=== PATIENT | male | born 1975 | race Caucasian/White ===

== ENCOUNTER 2016-09-21 15:35 | Emergency (ER) | payer BC ==
[2016-09-21 17:11] LABS: UDS - AMPHET NEGATIVE QUAL (NEGATIVE); UDS - BARB NEGATIVE QUAL (NEGATIVE); UDS - BENZO NEGATIVE QUAL (NEGATIVE); UDS - COCAINE NEGATIVE QUAL (NEGATIVE); UDS - METH NEGATIVE QUAL (NEGATIVE); UDS - OPIATE NEGATIVE QUAL (NEGATIVE); UDS - PCP NEGATIVE QUAL (NEGATIVE); UDS - THC NEGATIVE QUAL (NEGATIVE)
[2016-09-21 17:49] LABS: ALBUMIN 4.1 g/dL (3.4-5.0); ALKALINE PHOSPHATASE 100 U/L (46-116); ALT (SGPT) 223 U/L (10-68); BILIRUBIN - TOTAL 0.94 mg/dL (0.2-1.3); CALC OSMOLALITY 281 mosm/kg (275-300); CARBON DIOXIDE 26.8 mmol/L (21.0-32.0); CHLORIDE - SERUM 100 mmol/L (98-107); GLUCOSE 102 mg/dL (74-106); POTASSIUM - SERUM 3.3 mmol/L (3.5-5.1); PROTEIN - SERUM 7.3 g/dL (6.4-8.2); SODIUM 141 mmol/L (136-145); UREA NITROGEN 16 mg/dL (7-18); eGFR NON AFRICAN AMERICAN 87 mL/min (90-120)
== END 2016-09-21 20:27 | disposition home or self-care (01) ==
LOC: D.ER 15:35
PROVIDERS: Emergency Medicine
DX: F32.9 Major depressive disorder, single episode, unspecified (principal); F10.10 Alcohol abuse, uncomplicated; G40.909 Epilepsy, unspecified, not intractable, without status epilepticus

== ENCOUNTER 2017-04-13 13:19 | Emergency (ER) | payer BC ==
[2017-04-13 14:53] LABS: BASOPHILS 1.1 % (0-2); EOSINOPHILS 2.6 % (0-7); HEMATOCRIT 34.3 % (42.0-54.0); IMMATURE GRANULOCYTES 0.3 % (0-5); LYMPHOCYTES 20.9 % (15-50); MCH 26.6 pg (26.0-34.0); MCHC 32.1 g/dL (31.0-37.0); MCV 82.9 fL (80.0-100.0); MEAN PLATELET VOLUME 9.4 fL (7.4-10.4); MONOCYTES 9.1 % (2-11); PLATELET COUNT 298 10x3/uL (130-400); RBC 4.14 10x6/uL (4.20-6.10); RDW 18.2 % (11.5-14.5)
[2017-04-13 15:33] LABS: ALBUMIN 3.8 g/dL (3.4-5.0); ALKALINE PHOSPHATASE 142 U/L (46-116); ALT (SGPT) 145 U/L (10-68); BILIRUBIN - TOTAL 0.52 mg/dL (0.2-1.3); CALC OSMOLALITY 276 mosm/kg (275-300); CALCIUM 8.8 mg/dL (8.5-10.1); CARBON DIOXIDE 23.7 mmol/L (21.0-32.0); CHLORIDE - SERUM 100 mmol/L (98-107); CREATININE - SERUM 0.8 mg/dL (0.6-1.3); GLUCOSE 86 mg/dL (74-106); MAGNESIUM - SERUM 1.4 mg/dL (1.8-2.4); POTASSIUM - SERUM 3.8 mmol/L (3.5-5.1); PROTEIN - SERUM 7.9 g/dL (6.4-8.2); SODIUM 140 mmol/L (136-145); UREA NITROGEN 10 mg/dL (7-18); eGFR NON AFRICAN AMERICAN > 90 mL/min (90-120)
[2017-04-13 15:44] LABS: APPEARANCE CLEAR (CLEAR); BILIRUBIN NEGATIVE (NEGATIVE); COLOR DK YELLOW (YELLOW); GLUCOSE NEGATIVE (NEGATIVE); KETONE NEGATIVE (NEGATIVE); LEUKOCYTE ESTERASE TRACE (NEGATIVE); NITRITE NEGATIVE (NEGATIVE); PROTEIN TRACE mg/dL (NEGATIVE); SPECIFIC GRAVITY 1.015 (1.005-1.020); UROBILINOGEN NORMAL (NORMAL)
[2017-04-13 15:47] LABS: BACTERIA FEW /hpf (NONE SEEN)
[2017-04-13 15:48] LABS: UDS - AMPHET NEGATIVE QUAL (NEGATIVE); UDS - BARB NEGATIVE QUAL (NEGATIVE); UDS - BENZO NEGATIVE QUAL (NEGATIVE); UDS - COCAINE NEGATIVE QUAL (NEGATIVE); UDS - METH NEGATIVE QUAL (NEGATIVE); UDS - OPIATE NEGATIVE QUAL (NEGATIVE); UDS - PCP NEGATIVE QUAL (NEGATIVE); UDS - THC NEGATIVE QUAL (NEGATIVE)
== END 2017-04-13 16:31 | disposition home or self-care (01) ==
LOC: D.ER 13:19
PROVIDERS: Family Medicine
DX: F10.10 Alcohol abuse, uncomplicated (principal); R56.9 Unspecified convulsions; E83.42 Hypomagnesemia; F17.200 Nicotine dependence, unspecified, uncomplicated

== ENCOUNTER 2018-11-14 16:41 | Inpatient (IN) | payer SELFPAY ==
[~2018-11-14] VITALS: Ht 180.3 cm; Wt 86.4 kg
[2018-11-14] MEDS ORDERED: TOPROL XL100 MG PO (16:46)
[2018-11-14] MEDS ORDERED: CARDIZEM CD180 MG PO (16:47)
[2018-11-14] MEDS ORDERED: OMEPRAZOLE20 M1 (16:47)
[2018-11-14] MEDS ORDERED: GAS-X125 M1 PO (16:48)
[2018-11-14] MEDS ORDERED: POTASSIUM99 M1 (16:48)
[2018-11-14 17:15] LABS: BASOPHILS 0.4 % (0-2); EOSINOPHILS 2.1 % (0-7); HEMATOCRIT 36.9 % (42.0-54.0); HEMOGLOBIN 12.8 g/dL (13.5-17.5); IMMATURE GRANULOCYTES 0.3 % (0-5); LYMPHOCYTES 12.6 % (15-50); MCH 35.4 pg (26.0-34.0); MCHC 34.7 g/dL (31.0-37.0); MCV 101.9 fL (80.0-100.0); MEAN PLATELET VOLUME 11.2 fL (7.4-10.4); MONOCYTES 5.4 % (2-11); NEUTROPHILS 79.2 % (40-80); RBC 3.62 10x6/uL (4.20-6.10); RDW 16.4 % (11.5-14.5); WBC 19.6 10x3/uL (4.8-10.8)
[2018-11-14 17:32] LABS: ALBUMIN 2.1 g/dL (3.4-5.0); ALKALINE PHOSPHATASE 448 U/L (46-116); ALT (SGPT) 27 U/L (10-68); AMYLASE - SERUM 70 U/L (25-115); BILIRUBIN - TOTAL 1.95 mg/dL (0.2-1.3); CALC OSMOLALITY 277 mosm/kg (275-300); CALCIUM 7.9 mg/dL (8.5-10.1); CARBON DIOXIDE 21.5 mmol/L (21.0-32.0); CHLORIDE - SERUM 103 mmol/L (98-107); CREATININE - SERUM 0.7 mg/dL (0.6-1.3); GLUCOSE 138 mg/dL (74-106); LIPASE 749 U/L (73-393); POTASSIUM - SERUM 3.8 mmol/L (3.5-5.1); PROTEIN - SERUM 7.4 g/dL (6.4-8.2); SODIUM 139 mmol/L (136-145); UREA NITROGEN 6 mg/dL (7-18); eGFR NON AFRICAN AMERICAN > 90 mL/min (90-120)
[2018-11-14 17:33] LABS: PLATELET COUNT 416 10x3/uL (130-400)
[2018-11-14 19:20] LABS: APPEARANCE CLEAR (CLEAR); BILIRUBIN NEGATIVE (NEGATIVE); COLOR YELLOW (YELLOW); GLUCOSE NEGATIVE (NEGATIVE); KETONE NEGATIVE (NEGATIVE); NITRITE NEGATIVE (NEGATIVE); PROTEIN TRACE mg/dL (NEGATIVE); UROBILINOGEN NORMAL (NORMAL)
[2018-11-14 19:30] VITALS: BP 107/64
[2018-11-14 20:24] VITALS: BP 115/68
--- NOTE | 2018-11-14 20:57 | NUR ---
TO BE ADMITTED, AT BEDSIDE, STATES HE FEELS MUCH BETTER, MEDICATION INFUSING PER ORDER. CALL LIGHT WITHIN REACH.
--- NOTE | 2018-11-14 22:17 | NUR ---
ATTEMPTED TO CALL REPORT, THEY WERE LOOKING FOR THE NURSE WHO WAS GOING TO TAKE THIS PATIENT, THEY SAID SOMEONE WOULD CALL ME BACK.
[2018-11-14 23:16] VITALS: BP 132/78; BMI 281.6
--- NOTE | 2018-11-14 23:22 | NUR ---
RECIEVED REPORT FROM DANIEL PATEL IN ER AT 222. ARRIVED TO [facility] IN W/C ASSISTED BY STAFF AT 2250. ALERT AND ORIENTEDD X4. UP AD KAM. TRANSFERED SELF TO BED. 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 IV TO LEFT HAND WITH BANNANA BAG AND NS INFUSING. DENIES ANY NEEDS AT THIS TIME AND DENIES ANY PAIN.
[2018-11-14 23:55] VITALS: BP 115/72
[2018-11-15 03:50] VITALS: BP 125/73
[2018-11-15 06:01] LABS: BASOPHILS 0.4 % (0-2); EOSINOPHILS 2.6 % (0-7); HEMATOCRIT 35.9 % (42.0-54.0); HEMOGLOBIN 11.8 g/dL (13.5-17.5); IMMATURE GRANULOCYTES 0.3 % (0-5); LYMPHOCYTES 12.4 % (15-50); MCH 33.9 pg (26.0-34.0); MCHC 32.9 g/dL (31.0-37.0); MCV 103.2 fL (80.0-100.0); MEAN PLATELET VOLUME 10.5 fL (7.4-10.4); MONOCYTES 5.8 % (2-11); NEUTROPHILS 78.5 % (40-80); RBC 3.48 10x6/uL (4.20-6.10); RDW 16.7 % (11.5-14.5); WBC 15.9 10x3/uL (4.8-10.8)
[2018-11-15 06:30] LABS: ALBUMIN 1.8 g/dL (3.4-5.0); ALKALINE PHOSPHATASE 368 U/L (46-116); ALT (SGPT) 21 U/L (10-68); CALC OSMOLALITY 272 mosm/kg (275-300); CALCIUM 7.2 mg/dL (8.5-10.1); CARBON DIOXIDE 23.6 mmol/L (21.0-32.0); CHLORIDE - SERUM 105 mmol/L (98-107); CREATININE - SERUM 0.6 mg/dL (0.6-1.3); GLUCOSE 91 mg/dL (74-106); POTASSIUM - SERUM 4.1 mmol/L (3.5-5.1); PROTEIN - SERUM 6.5 g/dL (6.4-8.2); SODIUM 138 mmol/L (136-145); eGFR NON AFRICAN AMERICAN > 90 mL/min (90-120)
[2018-11-15 06:36] LABS: UREA NITROGEN 4 mg/dL (7-18)
[2018-11-15 06:49] LABS: PLATELET COUNT 313 10x3/uL (130-400)
[2018-11-15 10:04] VITALS: BP 141/69
[2018-11-15 11:00] VITALS: BMI 36.0
--- NOTE | 2018-11-15 12:16 | NUR ---
STOOL SPECIMEN COLLECTED AND TAKEN TO LAB. WILL MONITOR.
[2018-11-15 15:37] VITALS: Ht 180.3 cm; Wt 86.4 kg
[2018-11-15 16:04] LABS: % SATURATION 42 % (15-55); IRON 92 ug/dl (35-150); TOTAL IRON BIND CAPACITY 216 ug/dl (260-445); UNSAT IRON BIND CAPACITY 124 ug/dl (150-375)
[2018-11-15 16:10] LABS: APTT 36.7 SECONDS (22.8-39.4); INR 1.32 (0.85-1.17); PROTIME 15.8 SECONDS (11.6-15.0)
[2018-11-15 16:25] LABS: MAGNESIUM - SERUM 2.1 mg/dL (1.8-2.4)
--- NOTE | 2018-11-15 16:37 | NUR ---
SHAYAN SALAZAR NOTIFIED OF AMMONIA LEVEL.
[2018-11-15 16:47] VITALS: BP 108/76
--- NOTE | 2018-11-15 17:08 | NUR ---
URINE SPECIMEN COLLECTED AND TAKEN TO LAB. WILL MONITOR.
[2018-11-15 17:39] LABS: UDS - AMPHET NEGATIVE QUAL (NEGATIVE); UDS - BARB NEGATIVE QUAL (NEGATIVE); UDS - BENZO NEGATIVE QUAL (NEGATIVE); UDS - COCAINE NEGATIVE QUAL (NEGATIVE); UDS - OPIATE POSITIVE QUAL (NEGATIVE); UDS - PCP NEGATIVE QUAL (NEGATIVE); UDS - THC NEGATIVE QUAL (NEGATIVE)
[2018-11-15 20:00] VITALS: BP 126/76
[2018-11-16 00:30] VITALS: BP 130/82
[2018-11-16 04:00] VITALS: BP 124/75
--- NOTE | 2018-11-16 04:12 | NUR ---
I have reviewed this patient and I concur with the Shift Assessment completed by the Licensed Practical Nurse today this shift.
--- NOTE | 2018-11-16 04:24 | NUR ---
RESTING WITH EYES CLOSED, RESPERATIONS EVEN, NO S/S DISTRESS NOTED.
[2018-11-16 06:10] LABS: BASOPHILS 0.5 % (0-2); EOSINOPHILS 2.2 % (0-7); HEMATOCRIT 34.2 % (42.0-54.0); HEMOGLOBIN 11.6 g/dL (13.5-17.5); IMMATURE GRANULOCYTES 0.2 % (0-5); LYMPHOCYTES 12.8 % (15-50); MCH 34.6 pg (26.0-34.0); MCHC 33.9 g/dL (31.0-37.0); MCV 102.1 fL (80.0-100.0); MEAN PLATELET VOLUME 10.6 fL (7.4-10.4); NEUTROPHILS 78.3 % (40-80); PLATELET COUNT 279 10x3/uL (130-400); RBC 3.35 10x6/uL (4.20-6.10); RDW 16.1 % (11.5-14.5); WBC 14.5 10x3/uL (4.8-10.8)
[2018-11-16 06:37] LABS: INR 1.51 (0.85-1.17); PROTIME 17.6 SECONDS (11.6-15.0)
[2018-11-16 06:47] LABS: ALBUMIN 1.8 g/dL (3.4-5.0); ALKALINE PHOSPHATASE 336 U/L (46-116); ALT (SGPT) 19 U/L (10-68); BILIRUBIN - TOTAL 3.59 mg/dL (0.2-1.3); CALC OSMOLALITY 269 mosm/kg (275-300); CALCIUM 7.8 mg/dL (8.5-10.1); CARBON DIOXIDE 21.6 mmol/L (21.0-32.0); CHLORIDE - SERUM 105 mmol/L (98-107); CHOLESTEROL, TOTAL 165 mg/dL (0-200); CREATININE - SERUM 0.5 mg/dL (0.6-1.3); GLUCOSE 84 mg/dL (74-106); HDL CHOLESTEROL 11 mg/dL (32-96); LDL CHOLESTEROL 132 mg/dL (0-100); LIPASE 262 U/L (73-393); POTASSIUM - SERUM 3.6 mmol/L (3.5-5.1); PROTEIN - SERUM 6.4 g/dL (6.4-8.2); SODIUM 137 mmol/L (136-145); TRIGLYCERIDE 110 mg/dL (30-200); UREA NITROGEN 5 mg/dL (7-18); eGFR NON AFRICAN AMERICAN > 90 mL/min (90-120)
[2018-11-16 06:48] LABS: AMYLASE - SERUM 38 U/L (25-115)
[2018-11-16 07:29] LABS: HEPATITIS C ANTIBODY <0.1 S/CO RAT (0.0-0.9)
--- NOTE | 2018-11-16 07:50 | NUR ---
LEAVING FOR MRI BY W/C. WILL CONT. PLAN OF CARE.
--- NOTE | 2018-11-16 08:00 | NUR ---
PARVIZ PETERS CALLED TO SHAYAN SALAZAR. NEW ORDERS GIVEN.
--- NOTE | 2018-11-16 08:58 | NUR ---
BACK FROM MRI. DIET And meds resumed.
--- NOTE | 2018-11-16 10:18 | NUR ---
STOOL SPECIMEN COLLECTED AND TAKEN TO LAB. WILL MONITOR.
--- NOTE | 2018-11-16 13:28 | NUR ---
1ST NS BOLAS 1000 CC STOPPED AT 1846, 1000 CC INFUSED.
--- NOTE | 2018-11-16 15:14 | NUR ---
MOTHER REQUESTS A SMALLER SHOWER CHAIR. WAS OFFERED TO FIND ANOTHERONE BUT IT MIGHT TAKE SOME TIME. SHE SAID NEVER MIND THAT HE WANTS A SHOWER NOW AND WILL NOT WAIT.
[2018-11-16 16:10] LABS: FOLATE (FOLIC ACID) - SERUM QNS ng/mL (())
--- NOTE | 2018-11-16 17:10 | NUR ---
TRANSFER FROM SHIP STEWARD BY STRETCHER. VS WNL. RIGHT WRIST STABLE WITH TR BAND INTACT. WILL MONITOR.
[2018-11-16 17:54] VITALS: BP 117/76
[2018-11-16 18:31] VITALS: BP 124/76
--- NOTE | 2018-11-16 19:09 | NUR ---
RESUMING PATIENT CARE. PT APPEARS TO BE SLEEPING. RESPIRATIONS ARE EVEN AND UNLABORED. NO S/S OF DISTRESS. CALL LIGHT WITHIN REACH. WILL CPOC.
[2018-11-16 22:36] VITALS: BP 121/77
[2018-11-17 06:02] LABS: BASOPHILS 0.5 % (0-2); EOSINOPHILS 2.3 % (0-7); HEMATOCRIT 35.1 % (42.0-54.0); HEMOGLOBIN 11.7 g/dL (13.5-17.5); IMMATURE GRANULOCYTES 0.3 % (0-5); LYMPHOCYTES 12.4 % (15-50); MCH 33.7 pg (26.0-34.0); MCHC 33.3 g/dL (31.0-37.0); MCV 101.2 fL (80.0-100.0); MEAN PLATELET VOLUME 10.7 fL (7.4-10.4); MONOCYTES 5.8 % (2-11); NEUTROPHILS 78.7 % (40-80); PLATELET COUNT 283 10x3/uL (130-400); RBC 3.47 10x6/uL (4.20-6.10); RDW 16.2 % (11.5-14.5); WBC 15.3 10x3/uL (4.8-10.8)
[2018-11-17 06:06] VITALS: BP 117/80
[2018-11-17 06:23] LABS: ALBUMIN 1.9 g/dL (3.4-5.0); ALKALINE PHOSPHATASE 324 U/L (46-116); ALT (SGPT) 23 U/L (10-68); BILIRUBIN - TOTAL 4.45 mg/dL (0.2-1.3); CALC OSMOLALITY 266 mosm/kg (275-300); CALCIUM 7.9 mg/dL (8.5-10.1); CARBON DIOXIDE 19.1 mmol/L (21.0-32.0); CHLORIDE - SERUM 102 mmol/L (98-107); CREATININE - SERUM 0.6 mg/dL (0.6-1.3); GLUCOSE 79 mg/dL (74-106); POTASSIUM - SERUM 3.4 mmol/L (3.5-5.1); PROTEIN - SERUM 6.6 g/dL (6.4-8.2); SODIUM 135 mmol/L (136-145); eGFR NON AFRICAN AMERICAN > 90 mL/min (90-120)
[2018-11-17 06:25] LABS: UREA NITROGEN 7 mg/dL (7-18)
[2018-11-17 08:17] LABS: FOLATE (FOLIC ACID) - SERUM 10.2 ng/mL (>3.0)
[2018-11-17 09:06] VITALS: BP 127/84
--- NOTE | 2018-11-17 09:56 | NUR ---
RECEIVED PT IN BED AAOX4 RESP UNLABORED DENIES ANY NEEDS OR DISCOMFORT WANTING TO DC HOME
[2018-11-17] MEDS ORDERED: LEVAQUIN750 MG PO (10:02)
[2018-11-17] MEDS ORDERED: CHRONULAC30 ML PO (10:03)
[2018-11-17] MEDS ORDERED: FLAGYL500 MG PO (10:03)
--- NOTE | 2018-11-17 12:38 | NUR ---
REVIEWED DISCHARGE INSTRUCTION WITH PT STATES UNDERSTANDING COPY GIVEN DCD SALINE LOCK TO LT HAND WITH IV CATHETER INTACT SITE FREE OF REDNESS OR EDEMA PT DISCHARGED HOME IN STABLE CONDITION WITH ALL PERSONAL BELONGINGS LEFT VIA W/C
--- NOTE | 2018-11-17 16:54 | MORECARE ---
CASE MANAGEMENT DISCHARGE SUMMARY PATIENT: PAULINA WAGNER UNIT: [id number] ADM DATE: 11/14/18 AGE: 42 : 71 SEX: M ROOM/BED: D.2114 AUTHOR: LIZBET,DOC PHYSICIAN: REFERRING PHYSICIAN: CHEVY GUERRERO MD DATE OF SERVICE: 11/17/18 Discharge Plan Patient Name: PAULINA WAGNER Facility: [facility]:[place] : 1975 Planned Disposition: Home Anticipated Discharge Date: 11/17/18 Discharge Date: 11/17/2018 Expected LOS: 3 Initial Reviewer: [email or web address] Initial Review Date: 11/17/2018 Generated: 11/17/18 5:53 pm Comments DCP- Discharge Planning Updated by [email or web address]: Kev Agrawal on 11/17/18 3:[address] Patient Name: PAULINA WAGNER Admission Status: ER Accout number: [id number] Admission Date: 11-14-2018 : 1975 Admission Diagnosis:UNSPECIFIED ABDOMINAL PAIN Attending: CHEVY GUERRERO Current LOS: 3 Anticipated DC Date: 11-17-2018 Planned Disposition: Home Primary Insurance: UNINSURED DISCOUNT PLAN Discharge Planning Comments: CM MET WITH PT IN ROOM TO DISCUSS DISCHARGE PLANNING AND NEEDS. PT REPORTS LIVING AT HOME INDEPENDENTLY WITH SPOUSE. PT HAS NO MEDICAL EQUIPMENT AND NO OUTSIDE SERVICES ASSISTING IN THE HOME. CM DISCUSSED AVAILABILITY OF HOME HEALTH, REHAB SERVICES AND MEDICAL EQUIPMENT. PT REPORTS FAMILY WILL PICK HIM UP FOR DISCHARGE HOME AND HE IS READY NOW. PT WILL FOLLOW UP WITH [facility] DEPARTMENT OF HUMAN SERVICES OFFICE IN REGARDS TO HIS MEDICAID APPLICATION THAT THE HOSPITAL SUBMITTED FOR THIS VISIT. PT DENIES DISCHARGE NEEDS. USABILITY ARCHITECT NURSE NOTIFIED. Net Mvc Developer: Kev Agrawal DCPIA - Discharge Planning Initial Assessment Updated by [email or web address]: Kev Agrawal on 11/17/18 4:50 pm * Is the patient Alert and Oriented? Yes * How many steps to enter\exit or inside your home? * PCP DR. MILLS IN [place] * Pharmacy [facility] [address] * Preadmission Environment Home with Family * ADLs Independent * Equipment None * Other Equipment LEG PROSETHESIS - [facility] NO MEDICAL EQUIPMENT PROVIDER PREFERENCE * List name and contact numbers for known caregivers / representatives who currently or will assist patient after discharge: ALIREZA BAKER, SPOUSE, * Verbal permission to speak to the caregivers and representatives has been obtained from the patient. N/A * Community resources currently utilized None * Please name any agencies selected above. NONE * Additional services required to return to the preadmission environment? No * Can the patient safely return to the preadmission environment? Yes * Has this patient been hospitalized within the prior 30 days at any hospital? No Patient Name: PAULINA WAGNER Page [phone] at 1654 All edits/amendments must be made on the electronic document DICTATION DATE: 11/17/181652 LAB MANAGER: REMA 11/17/181652 RPT#: [id number] DC DATE:11/17/18 STATUS: DIS IN [facility] [address] [place] [address] END OF REPORT
== END 2018-11-17 11:38 | disposition home or self-care (01) | DRG 392 ==
LOC: D.ER 16:41 → D.M2 21:01 → D.EDHOLD 21:01 → D.M2 21:47
PROVIDERS: Family Medicine; Internal Medicine Gastroenterology; ADMIT Internal Medicine Nephrology; ATTEND Internal Medicine Nephrology
DX: A09 Infectious gastroenteritis and colitis, unspecified (principal); F17.213 Nicotine dependence, cigarettes, with withdrawal; K92.1 Melena; K70.11 Alcoholic hepatitis with ascites; D50.9 Iron deficiency anemia, unspecified; F10.10 Alcohol abuse, uncomplicated; K21.9 Gastro-esophageal reflux disease without esophagitis; F32.9 Major depressive disorder, single episode, unspecified

== ENCOUNTER → 2018-12-08 06:33 | Outpatient (CLI) | payer MEDICAID ==
[2018-11-15 15:37] VITALS: BMI 36.0
[~2018-12-08 06:33] MED LIST: CARDIZEM CD180 MG PO; CHRONULAC30 ML PO; FLAGYL500 MG PO; GAS-X125 M1 PO; LEVAQUIN750 MG PO; OMEPRAZOLE20 M1; POTASSIUM99 M1; TOPROL XL100 MG PO
[2018-12-08 07:15] LABS: BASOPHILS 1.4 % (0-2); EOSINOPHILS 3.9 % (0-7); HEMATOCRIT 37.7 % (42.0-54.0); HEMOGLOBIN 12.8 g/dL (13.5-17.5); IMMATURE GRANULOCYTES 0.3 % (0-5); LYMPHOCYTES 21.6 % (15-50); MCH 33.4 pg (26.0-34.0); MCV 98.4 fL (80.0-100.0); MEAN PLATELET VOLUME 10.8 fL (7.4-10.4); MONOCYTES 7.4 % (2-11); NEUTROPHILS 65.4 % (40-80); PLATELET COUNT 302 10x3/uL (130-400); RBC 3.83 10x6/uL (4.20-6.10); RDW 15.5 % (11.5-14.5); WBC 11.5 10x3/uL (4.8-10.8)
[2018-12-08 07:31] LABS: ALBUMIN 2.6 g/dL (3.4-5.0); BILIRUBIN - DIRECT 1.1 mg/dL (0.00-0.30); BILIRUBIN - INDIRECT 0.64 mg/dL (0.00-1.00); BILIRUBIN - TOTAL 1.74 mg/dL (0.2-1.3); PROTEIN - SERUM 7.6 g/dL (6.4-8.2)
== END | disposition home or self-care (01) ==
LOC: D.US 06:33
PROVIDERS: ATTEND Internal Medicine Gastroenterology
DX: K76.0 Fatty (change of) liver, not elsewhere classified (principal); K92.1 Melena; K52.9 Noninfective gastroenteritis and colitis, unspecified

== ENCOUNTER 2020-01-08 19:15 | Inpatient (IN) | payer MEDICAID ==
[~2020-01-08] VITALS: Ht 180.3 cm; Wt 90.7 kg
[2020-01-08 20:37] LABS: HEMATOCRIT 27.9 % (42.0-54.0); HEMOGLOBIN 9.6 g/dL (13.5-17.5); MCH 37.5 pg (26.0-34.0); MCHC 34.4 g/dL (31.0-37.0); MEAN PLATELET VOLUME 10.6 fL (7.4-10.4); PLATELET COUNT 144 10x3/uL (130-400); RBC 2.56 10x6/uL (4.20-6.10); RDW 21.2 % (11.5-14.5); WBC 22.8 10x3/uL (4.8-10.8)
[2020-01-08 20:47] LABS: ALBUMIN 1.9 g/dL (3.4-5.0); ALKALINE PHOSPHATASE 321 U/L (30-120); ALT (SGPT) 45 U/L (10-68); AMYLASE - SERUM 62 U/L (25-115); BILIRUBIN - TOTAL 14.94 mg/dL (0.2-1.3); CALCIUM 7.7 mg/dL (8.5-10.1); CARBON DIOXIDE 17.7 mmol/L (21.0-32.0); CHLORIDE - SERUM 103 mmol/L (98-107); CREATININE - SERUM 1.3 mg/dL (0.6-1.3); LIPASE 263 U/L (73-393); PROTEIN - SERUM 5.4 g/dL (6.4-8.2); SODIUM 135 mmol/L (136-145); UREA NITROGEN 9 mg/dL (7-18); eGFR NON AFRICAN AMERICAN 63 mL/min (90-120)
[2020-01-08 20:50] LABS: CALC OSMOLALITY 269 mosm/kg (275-300); GLUCOSE 124 mg/dL (74-106); TROPONIN-I < 0.017 ng/mL (0.000-0.060)
[2020-01-08 20:57] LABS: POTASSIUM - SERUM 2.2 mmol/L (3.5-5.1)
[2020-01-08 21:27] LABS: EOSINOPHILS 2 % (0-7); LYMPHOCYTES 24 % (15-50); NEUTROPHILS 74 % (40-80); PLATELET ESTIMATE NORMAL
[2020-01-08 21:58] LABS: APTT 53.3 SECONDS (22.8-39.4)
[2020-01-08 22:06] LABS: INR 4.57 (0.85-1.17); PROTIME 42.3 SECONDS (11.6-15.0)
[2020-01-08 22:06] LABS: SPECIFIC GRAVITY 1.015 (1.005-1.020)
[2020-01-08 22:07] LABS: BILIRUBIN 2+ (NEGATIVE); GLUCOSE NEGATIVE (NEGATIVE); KETONE NEGATIVE (NEGATIVE); NITRITE NEGATIVE (NEGATIVE); UROBILINOGEN NORMAL (NORMAL)
[2020-01-08 22:08] LABS: BACTERIA FEW /hpf (NEGATIVE); RED CELLS - URINE 0-5 /hpf (0-5); WHITE CELLS - URINE 0-5 /hpf (NEGATIVE)
[2020-01-08] MEDS ORDERED: OMEPRAZOLE20 M1 PO (23:37)
[2020-01-08] MEDS ORDERED: K-DUR20 MEQ PO (23:37)
[2020-01-08] MEDS ORDERED: ALDACTONE50 MG PO (23:38)
[2020-01-08] MEDS ORDERED: PHENERGAN25 M1 PO (23:38)
[2020-01-08] MEDS ORDERED: XIFAXAN550 MG PO (23:39)
[2020-01-08] MEDS ORDERED: FUROSEMIDE40 MG PO (23:39)
[2020-01-09] VITALS (12 sets, daily range): BP systolic 100–121; BP diastolic 59–95; Ht 180.3 cm; Wt 90.7 kg
--- NOTE | 2020-01-09 01:17 | NUR ---
PT ARRIVED ON UNIT VIA WHEELCHAIR, ESCORTED BY ER NURSE. IV TO LEFT AC PATENT...RE-STARTED NS @ 125 ML/HR, AND STARTED NEW POTASSIUM RIDER 10 MEQ AT 60 ML/HR.
--- NOTE | 2020-01-09 01:53 | NUR ---
PT REQUESTED BENADRYL FOR SLEEP. RECEIVED ORDER FROM BENEFIT DIRECTOR FOR BENADRYL 25 MG IVP X1...MAY REPEAT IF NEEDED.
--- NOTE | 2020-01-09 01:54 | NUR ---
OK FROM UPHOLSTERY BUNDLER FOR PT TO TAKE HIS OWN NIGHT MEDS...WILL RECONCILE HOME MEDS AND MD CAN REVIEW IN AM.
--- NOTE | 2020-01-09 07:28 | NUR ---
PT LYING IN BED C/O BEING COLD, PT ROOM IS WARM, HEATER ON 80, PT HAS 2 BLANKETS ON BED, ASSISTED PT IN PULLING BLANKET OVER SELF. PT REWUESTED WATER THIS MORNING, NO OTHER NEEDS VOICED, NO S/SX OF DISTRESS, CL IN REACH. CONTINUE WITH PLAN OF CARE
[2020-01-09 07:56] LABS: % SATURATION 90 % (15-55); IRON 100 ug/dl (35-150); TOTAL IRON BIND CAPACITY 111 ug/dl (260-445)
[2020-01-09 07:57] LABS: UNSAT IRON BIND CAPACITY 11 ug/dl (150-375)
[2020-01-09 08:06] LABS: ALBUMIN 1.6 g/dL (3.4-5.0); BILIRUBIN - TOTAL 12.91 mg/dL (0.2-1.3); CALCIUM 7.2 mg/dL (8.5-10.1); CREATININE - SERUM 1.4 mg/dL (0.6-1.3); MAGNESIUM - SERUM 1.3 mg/dL (1.8-2.4); PROTEIN - SERUM 4.6 g/dL (6.4-8.2)
[2020-01-09 08:11] LABS: ANION GAP 18.5 mmol/L (8-16)
--- NOTE | 2020-01-09 08:13 | NUR ---
RECEIVED CALL FROM RAMON IN LAB THAT PT'S HGB IS 7.0 RBC IS 1.9 AND K+ IS 2.5, ASKED LAB TO PLEASE REDRAW TO CONFIRM BEFORE I CALL IVAN. NO OTHER NEEDS AT THIS TIME, CONTINUE WITH PLAN OF CARE
[2020-01-09 08:19] LABS: POTASSIUM - SERUM 2.5 mmol/L (3.5-5.1)
[2020-01-09 09:57] LABS: BASOPHILS 0.5 % (0-2); EOSINOPHILS 10.6 % (0-7); HEMATOCRIT 19.7 % (42.0-54.0); HEMOGLOBIN 6.8 g/dL (13.5-17.5); IMMATURE GRANULOCYTES 1.1 % (0-5); MCH 37.2 pg (26.0-34.0); MCHC 34.5 g/dL (31.0-37.0); MCV 107.7 fL (80.0-100.0); MEAN PLATELET VOLUME 10.5 fL (7.4-10.4); MONOCYTES 11.1 % (2-11); NEUTROPHILS 61.7 % (40-80); PLATELET COUNT 125 10x3/uL (130-400); RBC 1.83 10x6/uL (4.20-6.10); RDW 21.2 % (11.5-14.5)
--- NOTE | 2020-01-09 10:03 | NUR ---
RECEIVED CALL FROM RAMON IN LAB, STATED PT LAB WORK IS WORSE HGB IS 6.8, HCT IS 19.7 AND RBX IS 1.83, CALLED AND RELAYED MESSAGE TO MARIE LAY AT 10:00. CONTINUE WITH PLAN OF CARE
--- NOTE | 2020-01-09 10:32 | NUR ---
RECEIVED ORDERS TO TRANSFER PT TO ICU, HS RITA PATEL CALLED WANTING TO KNOW WHY PT IS BEING TRANSFERRED, ADVISED PER TRANSFER ORDER LIVER FAILURE, PER HS SHE UNDERSTOOD THAT IS WHY PT WAS ADMITTED AND NEEDED A BETTER JUSTIFICATION FOR TRANSFERRING, CALLED SUPERINTENDENT GREENS AND ASKED WHY AND WAS TOLD BECAUSE PT IS INLIVER FAILURE AND DR MCGRATH TOLD ME TO. CALLED REPORT TO HOMERO PATEL. WILL TRANSFER PT
--- NOTE | 2020-01-09 11:00 | NUR ---
REPORT PER LEATHA ALEXIS. PT VOICES NO CO AT TIME. BLOOD CONSENT OBTAINED.
--- NOTE | 2020-01-09 12:10 | NUR ---
PRBC STARTED. NO ADVERSE REACTION NOTED.
--- NOTE | 2020-01-09 15:00 | NUR ---
1ST UNIT OF PRBC COMPLETE. NO ADVERSE REACTION NOTED.
--- NOTE | 2020-01-09 15:11 | NUR ---
2ND UNIT OF PRBCS STARTED.
--- NOTE | 2020-01-09 19:00 | NUR ---
SHIFT ASSESSMENT COMPLETED, PT CARE ASSUMED, MONITORS ON AND WORKING, VITALS STABLE, PT AWAKE AND ALERT, CALL LIGHT WITHIN REACH, SEE FLOW SHEET FOR FURTHER DETIALS. WILL CONTINUE TO OBSERVE.
--- NOTE | 2020-01-09 21:00 | NUR ---
PT LYING IN BED RESTING, MONITORS ON AND WORKING, PT REFUSES TO TAKE OFF PROSTHESIS AT THIS TIME, PT AWAKE AND ALERT, CALL LIGHT WITHIN REACH, URNIAL AT BEDSIDE. MONITORS ON AND WORKING, WILL CONTINUE TO OBSERVE.
[2020-01-09 21:40] LABS: HEMATOCRIT 26.3 % (42.0-54.0); HEMOGLOBIN 9.5 g/dL (13.5-17.5)
--- NOTE | 2020-01-09 23:00 | NUR ---
PT SITTING UP IN BED, MONITORS ON AND WORKING, VITALS STABLE, CALL LIGHT WITHIN REACH, SEE FLOW SHEET FOR FURTHER DETAILS. WILL CONTINUE TO OBSERVE.
[2020-01-10] VITALS (10 sets, daily range): BP systolic 93–107; BP diastolic 47–91
--- NOTE | 2020-01-10 01:00 | NUR ---
PT SITTING UP IN BED, PROTHESIS OFF, STUMP CLEAN AND DRY, MONITORS ON AND WORKING, VITALS STABLE, CALL LIGHT WITHIN REACH, WILL CONTINUE TO OBSERVE.
--- NOTE | 2020-01-10 02:30 | NUR ---
PT SITTING UP IN BED, CHG BED BATH GIVEN, PT TOLERATED WELL, MONITORS ON AND WORKING, VITALS STABLE. CALL LIGHT WITHIN REACH.
--- NOTE | 2020-01-10 03:00 | NUR ---
PT COMPLAINING OF RIB PAIN FROM PREVIOUS INCIDENT, PT STATES THAT AFTER SITTING UP IN BED FOR BED BATH RIB PAIN INCREASED, 02 100% ON ROOM AIR, MONITORS ON AND WORKING, VITALS STABLE, WILL TRY TO REPOSITION TO EASE PAIN. CALL LIGHT WITHIN REACH, SEE FLOW SHEET FOR FURTHER DETAILS, WILL CONTIUE TO OBSERVE.
[2020-01-10 04:47] LABS: ANION GAP 15.4 mmol/L (8-16); BILIRUBIN - TOTAL 16.38 mg/dL (0.2-1.3); CALCIUM 7.4 mg/dL (8.5-10.1); CARBON DIOXIDE 17.7 mmol/L (21.0-32.0); CREATININE - SERUM 1.3 mg/dL (0.6-1.3); MAGNESIUM - SERUM 1.4 mg/dL (1.8-2.4); PHOSPHOROUS 1.8 mg/dL (2.5-4.9); PROTEIN - SERUM 5.5 g/dL (6.4-8.2)
[2020-01-10 04:49] LABS: WBC 22.8 10x3/uL (4.8-10.8)
[2020-01-10 04:50] LABS: HEMATOCRIT 29.5 % (42.0-54.0); HEMOGLOBIN 10.7 g/dL (13.5-17.5); MCH 36.3 pg (26.0-34.0); MCHC 36.3 g/dL (31.0-37.0); MEAN PLATELET VOLUME 10.7 fL (7.4-10.4); PLATELET COUNT 116 10x3/uL (130-400); RBC 2.95 10x6/uL (4.20-6.10); RDW 21.7 % (11.5-14.5)
[2020-01-10 04:54] LABS: POTASSIUM - SERUM 3.1 mmol/L (3.5-5.1)
--- NOTE | 2020-01-10 05:00 | NUR ---
PT LYING IN BED RESTING. MONITORS ON AND WORKING, VITALS STABLE. CALL LIGHT WITHIN REACH, WILL CONTINUE TO OBSERVE.
--- NOTE | 2020-01-10 07:25 | NUR ---
REPORT RECEIVED. ASSESSMENT COMPLETE PER FLOW SHEET. VSS. PT RESTING COMFORTABLY WILL CONTINUE TO MONITOR
--- NOTE | 2020-01-10 08:11 | NUR ---
Nutrition follow-up: Pt now in ICU 2/2 liver failure. Diet advanced to full liquids; po intake 100% x 1 meal Labs reviewed Wt: 199# RDN following.
--- NOTE | 2020-01-10 09:20 | NUR ---
L AC PIV LEAKING, REDRESSED FLUSHES WITHOUT DIFFICULTY WILL MONITOR. R HAND PIV DC CATH INTACT.
[2020-01-10 10:23] LABS: BURR CELLS OCC; EOSINOPHILS 8 % (0-7); LYMPHOCYTES 15 % (15-50); MONOCYTES 17 % (2-11); NEUTROPHILS 60 % (40-80); PLATELET ESTIMATE DECREASED
[2020-01-10 10:24] LABS: ANISOCYTOSIS 1+; CRENATED CELLS 1+
[2020-01-10 11:00] LABS: HEMATOCRIT 28.9 % (42.0-54.0); HEMOGLOBIN 10.2 g/dL (13.5-17.5)
--- NOTE | 2020-01-10 11:20 | NUR ---
REASSESSMENT COMPLETE PER FLOW SHEET. VSS. PT RESTING COMFORTABLY WILL CONTINUET O MONITOR
[2020-01-10 13:07] LABS: INR 2.36 (0.85-1.17); PROTIME 25.4 SECONDS (11.6-15.0)
--- NOTE | 2020-01-10 13:10 | NUR ---
PT RESTING COMFORTABLY VSS NO NEW CHANGES WILL CONTINUE TO MONITOR
--- NOTE | 2020-01-10 15:00 | NUR ---
REASSESSMENT COMPLETE PER FLOW SHEET. VSS. PT RESTING COMFORTABLY WILL CONTINUE TO MONITOR
[2020-01-10 16:19] LABS: HEMATOCRIT 26.1 % (42.0-54.0); HEMOGLOBIN 9.4 g/dL (13.5-17.5)
--- NOTE | 2020-01-10 20:00 | NUR ---
RECEIVED TO FLOOR ACCOMPANIED BY ICU STAFF. A&0 X 4. PT APPEARS JAUNDICED. RIGHT BKA(OLD). PT VOIDED IN URINAL, DARK TEA COLORED URINE. REPORTS ABDOMINAL PAIN, PROBABLY DUE TO GAS. VS STABLE. PT HAD VOMITTING EPISODE, BUT DENIES NAUSEA, STATES HE FORCED HIMSELF TO THROW UP BECAUSE MAYBE THAT WAS THE CAUSE OF HIS ABDOMINAL PAIN, BUT PAIN WAS NOT RELIEVED. 100MLs EMESIS IN BAG. INFORMED OF NEED FOR URINE SPECIMEN, PT STATES IT WILL PROBABLY BE A WHILE. CTM.
--- NOTE | 2020-01-10 21:22 | MORECARE ---
CASE MANAGEMENT DISCHARGE SUMMARY PATIENT: PAULINA WAGNER UNIT: [id number] ADM DATE: 01/08/20 AGE: 44 : 71 SEX: M ROOM/BED: D.2211 AUTHOR: FAITH SOMERS PHYSICIAN: REFERRING PHYSICIAN: CHEVY GUERRERO MD DATE OF SERVICE: 01/10/20 Discharge Plan Patient Name: PAULINA WAGNER [facility] [facility] 1975 Planned Disposition: Home Anticipated Discharge Date: Discharge Date: Expected LOS: Initial Reviewer: [email or web address] Initial Review Date: 01/08/2020 Generated: 01/10/20 10:21 pm DCPIA - Discharge Planning Initial Assessment Updated by [email or web address]: Nadine Cruz on 01/10/20 9:20 pm * Is the patient Alert and Oriented? Yes * How many steps to enter\exit or inside your home? * PCP LINA * Pharmacy [facility] * Preadmission Environment Home with Family * ADLs Independent * Equipment Wheelchair * List name and contact numbers for known caregivers / representatives who currently or will assist patient after discharge: ALIREZA JOHANSEN [phone] * Verbal permission to speak to the caregivers and representatives has been obtained from the patient. Yes * Community resources currently utilized None * Additional services required to return to the preadmission environment? No * Can the patient safely return to the preadmission environment? Yes * Has this patient been hospitalized within the prior 30 days at any hospital? Yes Patient Name: PAULINA WAGNER Page 40511 at 2122 All edits/amendments must be made on the electronic document DICTATION DATE: 01/10/202121 PARQUET FLOOR LAYER'S HELPER: REMA 01/10/202121 RPT#: [id number] DC DATE: STATUS: ADM IN [facility] [address] [place] [address] END OF REPORT
--- NOTE | 2020-01-10 21:29 | MORECARE ---
CASE MANAGEMENT DISCHARGE SUMMARY PATIENT: PAULINA WAGNER UNIT: [id number] ADM DATE: 01/08/20 AGE: 44 : 71 SEX: M ROOM/BED: D.2211 AUTHOR: LIZBET,DOC PHYSICIAN: REFERRING PHYSICIAN: CHEVY GUERRERO MD DATE OF SERVICE: 01/10/20 Discharge Plan Patient Name: PAULINA WAGNER Facility: [facility]:[place] : 1975 Planned Disposition: Home Anticipated Discharge Date: Discharge Date: Expected LOS: Initial Reviewer: [email or web address] Initial Review Date: 01/08/2020 Generated: 01/10/20 10:28 pm Comments DCP- Discharge Planning Updated by [email or web address]: Nadine Cruz on 01/10/20 8:[address] Patient Name: PAULINA WAGNER Admission Status: ER Accout number: [id number] Admission Date: 01-08-2020 : 1975 Admission Diagnosis: Attending: CHEVY GUERRERO Current LOS: 2 Anticipated DC Date: Planned Disposition: Home Primary Insurance: [place] PRIVATE OPTIONS PAU Discharge Planning Comments: CM met with patient at bedside after explaining CM role and obtaining verbal consent. Patient lives at home with his family where he is independent with his care and plans to return there upon discharge. Patient feels this would be a safe discharge. CM discussed availability / needs of home health and medical equipment. Patient denies any discharge needs at this time. Patient states he will have his family drive him home upon discharge. CM will continue to follow and assist as needed with discharge planning / needs. Structural Steel Trades Worker: Nadine Cruz DCPIA - Discharge Planning Initial Assessment Updated by [email or web address]: Nadine Cruz on 01/10/20 9:20 pm * Is the patient Alert and Oriented? Yes * How many steps to enter\exit or inside your home? * PCP LINA * Pharmacy [facility] * Preadmission Environment Home with Family * ADLs Independent * Equipment Wheelchair * List name and contact numbers for known caregivers / representatives who currently or will assist patient after discharge: ALIREZA JOHANSEN - [phone] * Verbal permission to speak to the caregivers and representatives has been obtained from the patient. Yes * Community resources currently utilized None * Additional services required to return to the preadmission environment? No * Can the patient safely return to the preadmission environment? Yes * Has this patient been hospitalized within the prior 30 days at any hospital? Yes Last DP export: 01/10/20 8:22 p Patient Name: PAULINA WAGNER Page 26660 at 2129 All edits/amendments must be made on the electronic document DICTATION DATE: 01/10/202127 REHABILITATION SERVICES MANAGER: REMA 01/10/202127 RPT#: [id number] DC DATE: STATUS: ADM IN [facility] [address] [place] [address] END OF REPORT
[2020-01-11] VITALS: BP 101/68
[2020-01-11 04:00] VITALS: BP 96/42
[2020-01-11 06:06] LABS: ALBUMIN 1.7 g/dL (3.4-5.0); ANION GAP 20.7 mmol/L (8-16); BILIRUBIN - TOTAL 12.63 mg/dL (0.2-1.3); CALCIUM 7.1 mg/dL (8.5-10.1); CREATININE - SERUM 1.3 mg/dL (0.6-1.3); MAGNESIUM - SERUM 1.7 mg/dL (1.8-2.4); PHOSPHOROUS 1.9 mg/dL (2.5-4.9); POTASSIUM - SERUM 3.5 mmol/L (3.5-5.1); PROTEIN - SERUM 4.7 g/dL (6.4-8.2)
[2020-01-11 06:09] LABS: CARBON DIOXIDE 11.8 mmol/L (21.0-32.0)
[2020-01-11 06:54] LABS: HEMATOCRIT 27.2 % (42.0-54.0); HEMOGLOBIN 9.5 g/dL (13.5-17.5); MCH 35.8 pg (26.0-34.0); MCHC 34.9 g/dL (31.0-37.0); MCV 102.6 fL (80.0-100.0); PLATELET COUNT 80 10x3/uL (130-400); RBC 2.65 10x6/uL (4.20-6.10); WBC 22.6 10x3/uL (4.8-10.8)
--- NOTE | 2020-01-11 07:25 | NUR ---
REPORT RECEIVED. PT SITTING SEMI FOWLERS IN BED. RR EVEN AND UNLABORED ON RA. PT HAS A L AC PIV INFUSING NS @ 75. BED LOCKED AND IN LOWEST POSITION, CALL LIGHT WITHIN REACH. WILL CTM
[2020-01-11 08:29] LABS: CRENATED CELLS 1+; EOSINOPHILS 8 % (0-7); LYMPHOCYTES 20 % (15-50); MONOCYTES 15 % (2-11); NEUTROPHILS 57 % (40-80); PLATELET ESTIMATE NORMAL; PLATELET MORPHOLOGY PLT CLUMPS PRESENT; SMUDGE CELLS OCC
[2020-01-11 08:30] VITALS: BP 102/61
[2020-01-11 08:30] LABS: BURR CELLS 1+
[2020-01-11 11:14] LABS: HEMATOCRIT 27.5 % (42.0-54.0); HEMOGLOBIN 9.7 g/dL (13.5-17.5)
[2020-01-11 12:25] VITALS: BP 92/46
--- NOTE | 2020-01-11 14:44 | NUR ---
DC PAPERWORK GONE OVER AND SIGNED WITH PT. ALL QUESTIONS ANSWERED. PIV REMOVED, CATH TIP FULLY INTACT. ALL BELONGINGS TAKIN WITH PT. FAMILY MEMBER HERE TO TAKE PT HOME.
== END 2020-01-11 14:44 | disposition home or self-care (01) | DRG 432 ==
LOC: D.ER 19:15 → D.MS 22:35 → D.ICU 22:35 → D.MS 01-10 19:13
PROVIDERS: Family Medicine; ADMIT Internal Medicine Nephrology; ATTEND Internal Medicine Nephrology
DX: K70.31 Alcoholic cirrhosis of liver with ascites (principal); E43 Unspecified severe protein-calorie malnutrition; F17.203 Nicotine dependence unspecified, with withdrawal; K86.1 Other chronic pancreatitis; F10.10 Alcohol abuse, uncomplicated; Z68.27 Body mass index [BMI] 27.0-27.9, adult; E87.6 Hypokalemia

== ENCOUNTER 2020-01-16 18:13 | Inpatient (IN) | payer MEDICAID ==
[~2020-01-16] VITALS: Ht 180.3 cm; Wt 97.1 kg
[~2020-01-16 18:13] MED LIST changes: +ALDACTONE50 MG PO; +FUROSEMIDE40 MG PO; +K-DUR20 MEQ PO; +OMEPRAZOLE20 M1 PO; +PHENERGAN25 M1 PO; +XIFAXAN550 MG PO
[2020-01-16 19:22] LABS: UDS - AMPHET NEGATIVE QUAL (NEGATIVE); UDS - BARB NEGATIVE QUAL (NEGATIVE); UDS - BENZO POSITIVE QUAL (NEGATIVE); UDS - COCAINE NEGATIVE QUAL (NEGATIVE); UDS - OPIATE NEGATIVE QUAL (NEGATIVE); UDS - PCP NEGATIVE QUAL (NEGATIVE); UDS - THC NEGATIVE QUAL (NEGATIVE)
[2020-01-16 19:32] LABS: BACTERIA FEW /hpf (NEGATIVE); BILIRUBIN NEGATIVE (NEGATIVE); GLUCOSE NEGATIVE (NEGATIVE); KETONE NEGATIVE (NEGATIVE); NITRITE NEGATIVE (NEGATIVE); SPECIFIC GRAVITY 1.015 (1.005-1.020); UROBILINOGEN NORMAL (NORMAL); WHITE CELLS - URINE 0-5 /hpf (NEGATIVE)
[2020-01-16 19:37] LABS: HEMATOCRIT 27.5 % (42.0-54.0); HEMOGLOBIN 9.8 g/dL (13.5-17.5); MCH 36.4 pg (26.0-34.0); MCHC 35.6 g/dL (31.0-37.0); MCV 102.2 fL (80.0-100.0); MEAN PLATELET VOLUME 11.2 fL (7.4-10.4); PLATELET COUNT 119 10x3/uL (130-400); RBC 2.69 10x6/uL (4.20-6.10); RDW 21.1 % (11.5-14.5); WBC 20.7 10x3/uL (4.8-10.8)
[2020-01-16 20:02] VITALS: BP 128/56
[2020-01-16 20:12] LABS: APTT 45.6 SECONDS (22.8-39.4); INR 1.94 (0.85-1.17); PROTIME 21.9 SECONDS (11.6-15.0)
[2020-01-16 20:17] LABS: ALBUMIN 1.9 g/dL (3.4-5.0); ANION GAP 20.5 mmol/L (8-16); BILIRUBIN - TOTAL 11.3 mg/dL (0.2-1.3); CALCIUM 8.2 mg/dL (8.5-10.1); CARBON DIOXIDE 14.6 mmol/L (21.0-32.0); CREATININE - SERUM 2.1 mg/dL (0.6-1.3); MAGNESIUM - SERUM 1.6 mg/dL (1.8-2.4); PROTEIN - SERUM 5.3 g/dL (6.4-8.2)
[2020-01-16 20:19] LABS: POTASSIUM - SERUM 6.1 mmol/L (3.5-5.1)
--- NOTE | 2020-01-16 20:19 | NUR ---
CRITICAL LAB 6.1 CALLED FROM CELESTINA IN LAB. EDP NOTIFIED.
[2020-01-16 20:49] LABS: EOSINOPHILS 6 % (0-7); LYMPHOCYTES 20 % (15-50); MONOCYTES 9 % (2-11); NEUTROPHILS 65 % (40-80); PLATELET ESTIMATE NORMAL
[2020-01-16 21:44] VITALS: BP 126/67
[2020-01-16 22:00] VITALS: BP 114/66
[2020-01-16 22:40] VITALS: BP 126/67
[2020-01-16 23:00] VITALS: BP 108/52
[2020-01-17] VITALS (7 sets, daily range): BP systolic 98–107; BP diastolic 49–63; Ht 180.3 cm; Wt 97.1 kg
--- NOTE | 2020-01-17 00:55 | NUR ---
JULIETA SUPPERVISOR CALLED FOR MULTI VIT BAG. AWAITING MED.
[2020-01-17 03:46] LABS: BASOPHILS 0.4 % (0-2); EOSINOPHILS 8.6 % (0-7); HEMATOCRIT 24.1 % (42.0-54.0); HEMOGLOBIN 8.6 g/dL (13.5-17.5); IMMATURE GRANULOCYTES 0.8 % (0-5); LYMPHOCYTES 16.3 % (15-50); MCH 35.5 pg (26.0-34.0); MCHC 35.7 g/dL (31.0-37.0); MEAN PLATELET VOLUME 11.2 fL (7.4-10.4); MONOCYTES 11.2 % (2-11); NEUTROPHILS 62.7 % (40-80); PLATELET COUNT 127 10x3/uL (130-400); RBC 2.42 10x6/uL (4.20-6.10); RDW 20.1 % (11.5-14.5); WBC 19.1 10x3/uL (4.8-10.8)
[2020-01-17 03:49] LABS: MCV 99.6 fL (80.0-100.0)
[2020-01-17 03:59] LABS: ALBUMIN 1.6 g/dL (3.4-5.0); ANION GAP 17.7 mmol/L (8-16); BILIRUBIN - TOTAL 10.11 mg/dL (0.2-1.3); CALCIUM 8.1 mg/dL (8.5-10.1); CARBON DIOXIDE 15.7 mmol/L (21.0-32.0); MAGNESIUM - SERUM 1.5 mg/dL (1.8-2.4); POTASSIUM - SERUM 4.4 mmol/L (3.5-5.1); PROTEIN - SERUM 4.7 g/dL (6.4-8.2)
--- NOTE | 2020-01-17 07:30 | NUR ---
UPDATE GIVEN TO FAMILY OVER PHONE, PASSWORD GIVEN
--- NOTE | 2020-01-17 09:30 | NUR ---
DR. MEDINA AT BEDSIDE, NEW ORDERS RECIEVED,
--- NOTE | 2020-01-17 14:30 | NUR ---
PT FAMILY AT BEDSIDE UPSET ON PT POC, FAMILY SPOKE WITH DR. MEDINA OVER PHONE ABOUT POC,
--- NOTE | 2020-01-17 15:12 | NUR ---
PT DC'D AT THIS TIME VIA WHEEL CHAIR
--- NOTE | 2020-01-17 16:56 | MORECARE ---
CASE MANAGEMENT DISCHARGE SUMMARY PATIENT: PAULINA WAGNER UNIT: [id number] ADM DATE: 01/16/20 AGE: 44 : 71 SEX: M ROOM/BED: D.2303 AUTHOR: FAITH SOMERS PHYSICIAN: REFERRING PHYSICIAN: SOPHIA MEDINA MD DATE OF SERVICE: 01/17/20 Discharge Plan Patient Name: PAULINA WAGNER [facility] [facility] 1975 Planned Disposition: Home Anticipated Discharge Date: Discharge Date: 01/17/2020 Expected LOS: Initial Reviewer: [email or web address] Initial Review Date: 01/16/2020 Generated: 01/17/20 5:55 pm DCPIA - Discharge Planning Initial Assessment Updated by [email or web address]: Nadine Cruz on 01/17/20 4:54 pm * Is the patient Alert and Oriented? Yes * How many steps to enter\exit or inside your home? * PCP Cb * Pharmacy [facility] * Preadmission Environment Home with Family * ADLs Independent * Equipment Wheelchair * List name and contact numbers for known caregivers / representatives who currently or will assist patient after discharge: ALIREZA JOHANSEN [phone] * Verbal permission to speak to the caregivers and representatives has been obtained from the patient. Yes * Community resources currently utilized None * Additional services required to return to the preadmission environment? No * Can the patient safely return to the preadmission environment? Yes * Has this patient been hospitalized within the prior 30 days at any hospital? Yes Patient Name: PAULINA WAGNER Page 09543 at 1656 All edits/amendments must be made on the electronic document DICTATION DATE: 01/17/201654 SALES EXECUTIVE: REMA 01/17/201654 RPT#: [id number] DC DATE:01/17/20 STATUS: DIS IN [facility] [address] [place] [address] END OF REPORT
--- NOTE | 2020-01-17 17:40 | MORECARE ---
CASE MANAGEMENT DISCHARGE SUMMARY PATIENT: PAULINA WAGNER UNIT: [id number] ADM DATE: 01/16/20 AGE: 44 : 71 SEX: M ROOM/BED: D.2303 AUTHOR: LIZBET,DOC PHYSICIAN: REFERRING PHYSICIAN: SOPHIA ALFREDO MD DATE OF SERVICE: 01/17/20 Discharge Plan Patient Name: PAULINA WAGNER Facility: [facility]:[place] : 1975 Planned Disposition: Home Anticipated Discharge Date: Discharge Date: 01/17/2020 Expected LOS: Initial Reviewer: [email or web address] Initial Review Date: 01/16/2020 Generated: 01/17/20 6:40 pm Comments DCP- Discharge Planning Updated by [email or web address]: Naidne Cruz on 01/17/20 4:[address] Patient Name: PAULINA WAGNER Admission Status: ER Accout number: [id number] Admission Date: 01-16-2020 : 1975 Admission Diagnosis: Attending: FERNANDO ALFREDO Current LOS: 1 Anticipated DC Date: Planned Disposition: Home Primary Insurance: [place] PRIVATE OPTIONS PAU Discharge Planning Comments: CM met with patient to complete initial dc planning assessment. CM educated patient on the CM role and verbal consent given by patient to complete assessment. Patient lives at home with family. Patient is independent. At discharge patient plans to return home and feels this is a safe discharge. CM discussed availability of home health, rehab services, and medical equipment. Patient will have family to transport home. Dr. Alfredo spoke to patient about Hospice and requested [facility] to come and Evaluate. [facility] came and evaluated patient and plan to admit at home upon discharge. Patient is ready to discharge home with hospice. CM will continue to follow and will assist as needed with dc plans/needs. Customer Support Coordinator: Nadine Cruz DCPIA - Discharge Planning Initial Assessment Updated by [email or web address]: Nadine Cruz on 01/17/20 4:54 pm * Is the patient Alert and Oriented? Yes * How many steps to enter\exit or inside your home? * PCP Cb * Pharmacy [facility] * Preadmission Environment Home with Family * ADLs Independent * Equipment Wheelchair * List name and contact numbers for known caregivers / representatives who currently or will assist patient after discharge: ALIREZA JOHANSEN - [phone] * Verbal permission to speak to the caregivers and representatives has been obtained from the patient. Yes * Community resources currently utilized None * Additional services required to return to the preadmission environment? No * Can the patient safely return to the preadmission environment? Yes * Has this patient been hospitalized within the prior 30 days at any hospital? Yes Last DP export: 01/17/20 3:56 p Patient Name: PAULINA WAGNER Page 33151 at 1740 All edits/amendments must be made on the electronic document DICTATION DATE: 01/17/201739 INTRANET SPECIALIST: REMA 01/17/201739 RPT#: [id number] DC DATE:01/17/20 STATUS: DIS IN [facility] [address] [place] [address] END OF REPORT
== END 2020-01-17 15:12 | disposition home health service (06) | DRG 433 ==
LOC: D.ER 18:13 → D.ICU 20:45
PROVIDERS: Family Medicine; ADMIT Emergency Medicine; ATTEND Emergency Medicine
DX: K70.31 Alcoholic cirrhosis of liver with ascites (principal); E72.20 Disorder of urea cycle metabolism, unspecified; N17.9 Acute kidney failure, unspecified; E87.1 Hypo-osmolality and hyponatremia; K86.1 Other chronic pancreatitis; F17.203 Nicotine dependence unspecified, with withdrawal; E44.0 Moderate protein-calorie malnutrition; K72.90 Hepatic failure, unspecified without coma; D50.9 Iron deficiency anemia, unspecified; D69.6 Thrombocytopenia, unspecified; E87.5 Hyperkalemia; E83.42 Hypomagnesemia; F10.10 Alcohol abuse, uncomplicated; Z89.511 Acquired absence of right leg below knee; R60.1 Generalized edema; D72.829 Elevated white blood cell count, unspecified; Z68.29 Body mass index [BMI] 29.0-29.9, adult